=== PATIENT | male | born 1950 | race Caucasian/White ===

== ENCOUNTER 2017-10-20 07:54 | Day surgery (SDC) | payer BC, OTHER ==
[2017-10-20] MEDS ORDERED: Midazolam 1 MG/ML 2 ML SDV ONE ×2 (08:32→08:58)
[2017-10-20] MEDS ORDERED: Propofol 200 MG/20 ML SDV ONE ×2 (08:33→08:58)
[2017-10-20] MEDS ORDERED: Sodium Chloride 0.9% 10 ML Syringe FLUSH PRN (08:33)
[2017-10-20] MEDS ORDERED: Lactated Ringers 1,000 ML IV SCH (08:34)
--- NOTE | 2017-10-20 09:00 | PCM.PN ---
- General Info Date of Service: 10/20/17 - Review of Systems Systems Review Comment:: 66-year-old male with history of colon polyps here for colonoscopy. He is medically stable to proceed today. His recent history and physical is reviewed and there is no significant change. I discussed the proposed colonoscopy with the patient.He agrees to proceed accepting risks. He denies any recent change in bowel pattern or family history of colon cancer. - Patient Data Vitals - Most Recent: Last Vital Signs Temp 97.7 F 10/20/17 08:28 Pulse 74 10/20/17 08:28 Resp 20 10/20/17 08:28 BP 130/104 H 10/20/17 08:28 Pulse Ox 97 10/20/17 08:28 Weight - Most Recent: 87.543 kg Med Orders - Current: Current Medications Lactated Ringer's (Ringers, Lactated) 1,000 mls @ 125 mls/hr IV ASDIRECTED ERLIN Last Admin: 10/20/17 08:43 Dose: 125 mls/hr Sodium Chloride (Saline Flush) 10 ml FLUSH ASDIRECTED PRN PRN Reason: Keep Vein Open Discontinued Medications Midazolam HCl (Versed 1 Mg/Ml) Confirm Administered Dose 2 mg .ROUTE .STK-MED ONE Stop: 10/20/17 08:33 Propofol (Diprivan 20 Ml) Confirm Administered Dose 400 mg .ROUTE .STK-MED ONE Stop: 10/20/17 08:34 - Problem List Review Problem List Initiated/Reviewed/Updated: Yes - My Orders Last 24 Hours: My Active Orders 10/20/17 08:33 Patient Status [ADT] Routine Verify Patient Consent Obtain [RC] ASDIRECTED Sodium Chloride 0.9% [Saline Flush] 10 ml FLUSH ASDIRECTED PRN Peripheral IV Insertion Adult [OM.PC] Routine 10/20/17 08:34 Peripheral IV Care [RC] . DIRECTED Lactated Ringers [Ringers, Lactated] 1,000 ml IV ASDIRECTED - Assessment Assessment:: History of Colon Polyps - Plan Plan:: Colonoscopy
--- NOTE | 2017-10-20 09:39 | PCM.OPNOTE ---
- General Post-Op/Procedure Note Date of Surgery/Procedure: 10/20/17 Operative Procedure(s): Colonoscopy with polypectomy Findings: Multiple small cecal polyps Moderate to Large Internal Hemorrhoids Pre Op Diagnosis: History of Colon Polyps Post-Op Diagnosis: Colon Polyps. Hemorrhoids Anesthesia Technique: MAC Primary Surgeon: Fredi Sanchez Pathology: Colon Polyps Output, Urine Amount: 0 EBL in mLs: 0 Complications: None Condition: Good Free Text/Narrative:: Intake & Output 10/19/17 10/20/17 10/20/17 22:59 06:59 14:59 Intake Total 600 Balance 600
[2017-10-20 13:01] VITALS: BP 124/79
--- NOTE | 2017-10-20 16:23 | OR ---
Date of Procedure: 10/20/2017 PREOPERATIVE DIAGNOSIS: History of colon polyps. POSTOPERATIVE DIAGNOSES: Colon polyps and internal hemorrhoids. OPERATIONS PERFORMED: Colonoscopy with polypectomy. INDICATIONS FOR SURGERY: This 66-year-old male who has a known history of colon polyps. It has been 3 years since his last colonoscopy and he comes for surveillance exam. FINDINGS: A cluster of 3 polyps were noted in the cecum. These range in size from 3 to 7 mm and were sessile in configuration. The patient also had moderate to large size internal hemorrhoids. The colon otherwise appeared normal. DESCRIPTION OF PROCEDURE: The patient was taken to the operating room. He was given intravenous sedation, and with him in the left lateral decubitus position, digital rectal exam was performed showing no rectal masses. The Olympus colonoscope was inserted into the rectum. Retroflexed examination of the rectal canal was performed. The scope was then carefully advanced under direct visualization through the entire length of the colon until the cecum was reached. Cecal acquisition was confirmed by noting the normal internal cecal anatomy including the appendiceal orifice and ileocecal valve. The light was also noted to transilluminate the abdominal wall in the right lower quadrant. In the cecum, the above-described small polyps were identified. These were removed with a variety of measures including use of the biopsy forceps as well as use of the cautery snare. With these devices, the all 3 polyps were completely removed. A small amount of residual polyp on one of these was destroyed with the cautery. Polyp fragments removed were retrieved. After this had been completed, the scope was slowly withdrawn sequentially re-examining the colonic segments until the entire colon and rectum had been fully examined. The scope was removed and the patient was taken from the operating room in satisfactory condition. ESTIMATED BLOOD LOSS: Zero. COMPLICATIONS: None. PROGNOSIS: Good. ALBERT Sanchez MD /[id number]
== END 2017-10-20 10:47 | disposition home or self-care (01) ==
LOC: LL.SDS 07:54
PROVIDERS: ATTEND Surgery
DX: Z12.11 Encounter for screening for malignant neoplasm of colon (principal); D12.0 Benign neoplasm of cecum; K64.8 Other hemorrhoids; I10 Essential (primary) hypertension; J44.9 Chronic obstructive pulmonary disease, unspecified; E78.5 Hyperlipidemia, unspecified; E87.5 Hyperkalemia; N52.9 Male erectile dysfunction, unspecified; F17.210 Nicotine dependence, cigarettes, uncomplicated; Z79.82 Long term (current) use of aspirin; Z79.899 Other long term (current) drug therapy; Z88.6 Allergy status to analgesic agent; Z86.010 Personal history of colon polyps
CPT/HCPCS: J2250; J2704; J7120

== ENCOUNTER → 2021-03-12 | Day surgery (SDC) | payer MEDICARE, OTHER ==
[~2021-03-12] MED LIST: Lactated Ringers 1,000 ML IV SCH; Propofol 200 MG/20 ML SDV ONE; Sodium Chloride 0.9% 10 ML Syringe FLUSH PRN
--- NOTE | 2021-03-12 10:46 | PCM.HPR ---
H & P Addendum review - H & P Addendum Review Date of Original H & P: 02/18/21 Date Reviewed: 03/12/21 Time Reviewed: 10:46 Patient was Examined: No Changes
--- NOTE | 2021-03-12 11:30 | PCM.OPNOTE ---
- General Post-Op/Procedure Note Date of Surgery/Procedure: 03/12/21 Operative Procedure(s): Colonoscopy Findings: Normal, redundant with looping Pre Op Diagnosis: Hx Colon Polyps Post-Op Diagnosis: Same Anesthesia Technique: MAC Primary Surgeon: Renaldo Lamar Complications: None Condition: Good
--- NOTE | 2021-03-12 12:08 | OR ---
Date of Procedure: 03/12/2021 PREOPERATIVE DIAGNOSIS: History of colon polyps. POSTOPERATIVE DIAGNOSIS: Normal colonoscopy. PROCEDURE: Colonoscopy. ANESTHESIA: IV sedation. PROCEDURE IN DETAIL: Patient was brought to the procedure room where he was placed on his left side and IV sedation administered. Digital rectal exam was performed, which was normal. Colonoscope was inserted and advanced with difficulty to the level of the cecum. His entire colon was looping and redundant and required pressure on the abdomen and requiring changing to the supine position to eventually reach the cecum. Cecum was confirmed by identifying the ileocecal valve. There was thick liquid stool remaining in the cecum and I was unable to visualize the appendiceal orifice, light was transilluminating along the entire right side upon withdrawing the scope initially. The ascending, transverse, and descending colon were normal in appearance. Sigmoid colon and rectum were normal. Retroflexion was normal. Air was removed and the scope withdrawn. Patient tolerated the procedure well and returned to recovery in stable condition. Recommend surveillance colonoscopy again in 5 years. ALBERT HOLGUIN MD /[id number]
[2021-03-12 15:23] VITALS: BP 102/61; PULSE 84
== END | disposition home or self-care (01) ==
LOC: LL.SDS 10:09
PROVIDERS: ATTEND Surgery
DX: Z12.11 Encounter for screening for malignant neoplasm of colon (principal); I10 Essential (primary) hypertension; E78.5 Hyperlipidemia, unspecified; J44.9 Chronic obstructive pulmonary disease, unspecified; E55.9 Vitamin D deficiency, unspecified; Z87.891 Personal history of nicotine dependence; Z86.010 Personal history of colon polyps
CPT/HCPCS: 00811; J2704; J7120

== ENCOUNTER 2024-09-22 12:02 | Emergency (ER) | payer MEDICARE ==
[2024-09-22 12:31] LABS: BASOPHILS ABSOLUTE AUTO 0.06 K/uL (0.00-0.20); BASOPHILS PERCENT AUTO 0.5 % (0.0-2.0); EOSINOPHILS ABSOLUTE AUTO 0.34 K/uL (0.00-0.50); HEMATOCRIT 34.1 % (39.0-49.0); HEMOGLOBIN 10.8 g/dL (13.1-16.8); IMMATURE GRAN ABSOLUTE AUTO 0.04 10^3/uL (0.00-0.04); IMMATURE GRAN PERCENT AUTO 0.4 % (0.0-0.4); LYMPHOCYTES ABSOLUTE AUTO 1.45 K/uL (0.50-3.50); LYMPHOCYTES PERCENT AUTO 12.7 % (10.0-50.0); MEAN CORPUSCULAR HEMOGLOBIN 29.3 pg (28.2-33.3); MEAN CORPUSCULAR HGB CONC 31.7 g/dL (31.7-36.0); MEAN CORPUSCULAR VOLUME 92.4 fL (84.0-98.0); MONOCYTES ABSOLUTE AUTO 0.66 K/uL (0.00-1.00); MONOCYTES PERCENT AUTO 5.8 % (2.0-14.0); NEUTROPHILS ABSOLUTE AUTO 8.84 K/uL (1.40-7.00); NEUTROPHILS PERCENT AUTO 77.6 % (45.0-80.0); PLATELET COUNT,PLT 355 K/uL (150-350); RED BLOOD CELL COUNT 3.69 M/uL (4.33-5.41); RED CELL DISTRIBUTION WIDTH 14.6 % (11.2-14.1); WHITE BLOOD CELL COUNT,WBC 11.4 K/uL (4.0-10.2)
[2024-09-22 13:00] VITALS: PULSE 70
[2024-09-22 13:02] LABS: ALBUMIN 2.8 g/dL (3.4-5.0); ANION GAP 4.2 meq/L (7-15); BILIRUBIN TOTAL 0.8 mg/dL (0.2-1.0); CALCIUM 8.8 mg/dL (8.5-10.1); CARBON DIOXIDE,CO2 30.8 mmol/L (21.0-32.0); CREATININE 1.46 mg/dL (0.51-1.17); EST CRCL DRUG DOSING (CG) 47.92 mL/min; PROTEIN TOTAL,TP 6.8 g/dL (6.4-8.2)
[2024-09-22 17:29] VITALS: BP 117/65
== END 2024-09-22 14:17 | disposition home or self-care (01) ==
LOC: LL.ED 12:02
DX: I11.0 Hypertensive heart disease with heart failure (principal); I50.9 Heart failure, unspecified; J90 Pleural effusion, not elsewhere classified; R60.0 Localized edema; I25.10 Atherosclerotic heart disease of native coronary artery without angina pectoris; M19.90 Unspecified osteoarthritis, unspecified site; E78.00 Pure hypercholesterolemia, unspecified; Z88.8 Allergy status to other drugs, medicaments and biological substances; Z79.82 Long term (current) use of aspirin; Z79.899 Other long term (current) drug therapy; Z90.49 Acquired absence of other specified parts of digestive tract
CPT/HCPCS: 36415; 71046; 80053; 83735; 83880; 85025; 85379; 94761; 99283